=== PATIENT | male | born 2000 | race African-American/Black ===

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

== ENCOUNTER 2021-12-22 10:20 | Emergency (ER) | payer OTHER ==
[~2021-12-22] VITALS: Ht 175.3 cm; Wt 99.8 kg
[~2021-12-22 10:20] MED LIST changes: +ZOFRAN4 MG PO
[2021-12-22] MEDS ORDERED: FLEXERIL PO (12:24)
[2021-12-22 12:37] VITALS: BP 127/81
--- NOTE | 2021-12-22 15:50 | EKG ---
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
== END 2021-12-22 12:37 | disposition home or self-care (01) ==
LOC: M.ERS 10:20
DX: M79.602 Pain in left arm (principal); R07.89 Other chest pain; M54.2 Cervicalgia; J45.909 Unspecified asthma, uncomplicated; Z98.890 Other specified postprocedural states